=== PATIENT | male | born 1980 | race Caucasian/White ===

== ENCOUNTER 2016-11-18 20:39 | Inpatient (IN) | payer SELFPAY ==
[~2016-11-18] VITALS: Ht 177.8 cm; Wt 104.4 kg
[~2016-11-18 20:39] MED LIST: CIPRO250 MG PO; LAC PO; NORCO1 TA2 PO; OMEPRAZOLE20 M2 PO
[2016-11-18 22:46] LABS: BASOPHIL % 0.2 % (0-2); RED CELL DISTRIBUTION WIDTH 13.4 % (11.5-14.5)
[2016-11-18 22:48] LABS: CALCIUM 9.1 mg/dL (8.5-10.1); CARBON DIOXIDE 27.2 mmol/L (21-32); CHLORIDE SERUM 101 mmol/L (98-107); CREATININE SERUM 0.9 mg/dL (0.7-1.3); GFR1 > 60 mL/min; GLUCOSE SERUM 123 mg/dL (74-106); PLATELET COUNT 410 x10^3mcL (130-400); POTASSIUM SERUM 3.5 mmol/L (3.5-5.1); SODIUM SERUM 138 mmol/L (136-145)
[2016-11-18 22:52] LABS: ALBUMIN 3.9 g/dL (3.4-5.0); ALKALINE PHOSPHATASE 83 U/L (46-116); ALT/SGPT 20 U/L (16-63); AST/SGOT 14 U/L (15-37); LIPASE 137 IU/L (73-393); TOTAL PROTEIN, SERUM 7.7 g/dL (6.4-8.2)
[2016-11-18 22:53] LABS: AMYLASE 126 U/L (25-115)
[2016-11-19 05:49] LABS: T3 TOTAL 1.18 ng/mL
[2016-11-19 06:47] LABS: PHOSPHOROUS 1.8 mg/dL (2.5-4.9)
[2016-11-19 07:14] LABS: FREE T4 1.62 ng/dL (0.76-1.46); FREE THYROXINE INDEX 4.5 ug/dL (1.4-4.5); T4(THYROXINE) 12.5 ug/dL (4.7-13.3)
[2016-11-19 10:01] LABS: microscopic required? YES; urine erythrocyte 2+ (NEGATIVE)
[2016-11-19 10:59] LABS: AMPHETAMINE QUAL UR NONE DETECTED (NEG <=1000)
[2016-11-19 14:22] VITALS: BP 130/82
[2016-11-19 21:35] VITALS: BP 125/82
[2016-11-20 05:51] VITALS: BP 131/79
[2016-11-20 06:08] LABS: BASOPHIL % 0.2 % (0-2); PLATELET COUNT 298 x10^3mcL (130-400); RED CELL DISTRIBUTION WIDTH 13.6 % (11.5-14.5)
[2016-11-20 06:16] LABS: CALCIUM 8.1 mg/dL (8.5-10.1); CARBON DIOXIDE 27.2 mmol/L (21-32); CHLORIDE SERUM 104 mmol/L (98-107); CREATININE SERUM 0.8 mg/dL (0.7-1.3); GFR1 > 60 mL/min; GLUCOSE SERUM 87 mg/dL (74-106); MAGNESIUM 1.8 mg/dL (1.8-2.4); PHOSPHOROUS 2.3 mg/dL (2.5-4.9); POTASSIUM SERUM 3.2 mmol/L (3.5-5.1); SODIUM SERUM 140 mmol/L (136-145)
[2016-11-20 08:48] VITALS: Ht 177.8 cm; Wt 104.4 kg
[2016-11-20 09:58] VITALS: BP 145/91
[2016-11-20] MEDS ORDERED: LEVAQUIN750 MG PO (12:00)
[2016-11-20] MEDS ORDERED: FLA500 PO (12:01)
[2016-11-20] MEDS ORDERED: BD LACTINEX1.4 MG PO (12:02)
[2016-11-20] MEDS ORDERED: COLACE100 MG PO (12:05)
[2016-11-20] MEDS ORDERED: NORCO1 TA2 PO (12:05)
[2016-11-20 13:48] VITALS: BP 145/91
== END 2016-11-20 16:32 | disposition home or self-care (01) | DRG 391 ==
LOC: ED 20:39 → DU 11-19 10:55 → MU 11-20 06:52
PROVIDERS: Emergency Medicine; ADMIT Family Medicine
DX: K57.32 Diverticulitis of large intestine without perforation or abscess without bleeding (principal); K85.90 Acute pancreatitis without necrosis or infection, unspecified; K21.0 Gastro-esophageal reflux disease with esophagitis; E83.39 Other disorders of phosphorus metabolism; F12.90 Cannabis use, unspecified, uncomplicated; Z88.8 Allergy status to other drugs, medicaments and biological substances; Z83.3 Family history of diabetes mellitus; Z82.49 Family history of ischemic heart disease and other diseases of the circulatory system
CPT/HCPCS: 83880; 84439; C9113; J0696; J1170; J1956; J2270; J2405; J3490; J7030; Q0092; Q9967

== ENCOUNTER 2017-03-07 11:37 | Emergency (ER) | payer MEDICAID ==
[~2017-03-07 11:37] MED LIST changes: +BD LACTINEX1.4 MG PO; +COLACE100 MG PO; +FLA500 PO; +LEVAQUIN750 MG PO
[2017-03-07 12:34] LABS: BASOPHIL % 0.2 % (0-2); PLATELET COUNT 380 x10^3mcL (130-400); RED CELL DISTRIBUTION WIDTH 13.3 % (11.5-14.5)
[2017-03-07 12:39] LABS: CALCIUM 8.7 mg/dL (8.5-10.1); CARBON DIOXIDE 29.2 mmol/L (21-32); CHLORIDE SERUM 102 mmol/L (98-107); CREATININE SERUM 0.7 mg/dL (0.7-1.3); GFR1 > 60 mL/min; GLUCOSE SERUM 133 mg/dL (74-106); POTASSIUM SERUM 3.7 mmol/L (3.5-5.1); SODIUM SERUM 139 mmol/L (136-145)
[2017-03-07 12:52] LABS: ALBUMIN 3.6 g/dL (3.4-5.0); ALKALINE PHOSPHATASE 86 U/L (46-116); ALT/SGPT 20 U/L (16-63); AST/SGOT 15 U/L (15-37); BILIRUBIN TOTAL 0.8 mg/dL (0.20-1.00); LIPASE 307 IU/L (73-393); TOTAL PROTEIN, SERUM 7.5 g/dL (6.4-8.2)
[2017-03-07 15:29] VITALS: BP 152/93
== END 2017-03-07 15:29 | disposition home or self-care (01) ==
LOC: ED 11:37
PROVIDERS: Emergency Medicine
DX: G89.29 Other chronic pain (principal); R10.84 Generalized abdominal pain; R11.2 Nausea with vomiting, unspecified; K58.9 Irritable bowel syndrome, unspecified; Z87.19 Personal history of other diseases of the digestive system; Z88.6 Allergy status to analgesic agent
CPT/HCPCS: C9113; J2550; J2765; J3010; J7030

== ENCOUNTER 2018-01-30 15:41 | Emergency (ER) | payer OTHER ==
[~2018-01-30] VITALS: Ht 180.3 cm; Wt 99.8 kg
[2018-01-30 15:49] VITALS: Ht 180.3 cm; Wt 99.8 kg
[2018-01-30 17:05] LABS: BASOPHIL % 0.3 % (0-2); PLATELET COUNT 335 x10^3mcL (130-400); RED CELL DISTRIBUTION WIDTH 13.3 % (11.5-14.5)
[2018-01-30 17:15] LABS: CALCIUM 8.9 mg/dL (8.5-10.1); CARBON DIOXIDE 29.2 mmol/L (21-32); CHLORIDE SERUM 102 mmol/L (98-107); GFR1 > 60 mL/min; GLUCOSE SERUM 121 mg/dL (74-106); POTASSIUM SERUM 3.7 mmol/L (3.5-5.1); SODIUM SERUM 138 mmol/L (136-145)
[2018-01-30 17:27] LABS: ALBUMIN 3.8 g/dL (3.4-5.0); ALKALINE PHOSPHATASE 84 U/L (46-116); ALT/SGPT 40 U/L (16-63); AST/SGOT 27 U/L (15-37); BILIRUBIN TOTAL 0.86 mg/dL (0.20-1.00); FREE T4 1.17 ng/dL (0.76-1.46); TOTAL PROTEIN, SERUM 7.8 g/dL (6.4-8.2)
[2018-01-30 17:55] LABS: UA SPECIFIC GRAVITY 1.015 (1.005-1.035); microscopic required? YES; urine erythrocyte 2+ (NEGATIVE)
[2018-01-30 20:51] VITALS: BP 127/76
== END 2018-01-30 20:51 | disposition home or self-care (01) ==
LOC: ED 15:41
PROVIDERS: Emergency Medicine
DX: R10.84 Generalized abdominal pain (principal); R11.2 Nausea with vomiting, unspecified; Z88.8 Allergy status to other drugs, medicaments and biological substances
CPT/HCPCS: 83880; 84439; J2405; J3010; J7030

== ENCOUNTER 2018-03-04 19:26 | Emergency (ER) | payer OTHER ==
[~2018-03-04] VITALS: Ht 180.3 cm; Wt 98.0 kg
[2018-03-04 20:43] LABS: BASOPHIL % 0.4 % (0-2); PLATELET COUNT 345 x10^3mcL (130-400); RED CELL DISTRIBUTION WIDTH 13.7 % (11.5-14.5)
[2018-03-04 20:47] LABS: CALCIUM 9.1 mg/dL (8.5-10.1); CARBON DIOXIDE 27.1 mmol/L (21-32); CHLORIDE SERUM 101 mmol/L (98-107); CREATININE SERUM 0.8 mg/dL (0.7-1.3); GFR1 > 60 mL/min; GLUCOSE SERUM 118 mg/dL (74-106); POTASSIUM SERUM 3.6 mmol/L (3.5-5.1); SODIUM SERUM 137 mmol/L (136-145)
[2018-03-04 20:52] LABS: ALKALINE PHOSPHATASE 89 U/L (46-116); ALT/SGPT 31 U/L (16-63); AMYLASE 111 U/L (25-115); AST/SGOT 17 U/L (15-37); BILIRUBIN TOTAL 1.6 mg/dL (0.20-1.00); LIPASE 143 IU/L (73-393)
[2018-03-04 22:02] LABS: microscopic required? YES; urine erythrocyte 2+ (NEGATIVE)
[2018-03-05 04:02] VITALS: BP 140/87
== END 2018-03-05 04:02 | disposition short-term general hospital (02) ==
LOC: ED 19:26
PROVIDERS: Emergency Medicine
DX: K57.90 Diverticulosis of intestine, part unspecified, without perforation or abscess without bleeding (principal); Z88.6 Allergy status to analgesic agent; Z87.19 Personal history of other diseases of the digestive system
CPT/HCPCS: J2270; J2405; J3490; J7030